=== PATIENT | male | born 1945 | race Caucasian/White ===

== ENCOUNTER 2023-07-17 00:24 | Day surgery (SDC) | payer MEDICARE, OTHER, SELFPAY ==
[2023-07-08 10:03] VITALS: BMI 35.5
--- NOTE | 2023-07-08 10:18 | PC.NURSE ---
Report to the Outpatient Waiting Room, entrance under the green pavilion located off [facility], at time ___1000____ on date __07/17/23 . Planned Procedure Time: ___1200 . Time changes happen often and if your time is changed the preop area will call you the afternoon before. - You and your visitor will be asked to self-screen and do not enter if you have any COVID symptoms. - A mask is optional within the hospital at this time. Patients may have clear liquids (water, carbonated beverages, clear teas, apple juice) until 3 hours prior to surgery (0900 AM) with a maximum of 20 ounces. - No food from midnight until time of surgery - Infants may have breast milk until 4 hours before surgery, infant formula 6 hours prior to surgery. - Children will be allowed to drink immediately following surgery. If applicable, please bring a bottle or sippy cup to assist with drinking. Juice, water, soda, and popsicles are readily available. For infants on formula, please bring formula the day of surgery. Pacifiers are allowed. Take the following medications with a SIP of water the morning of surgery: _* 1/2 DOSE OF AM INSULIN *, ISOSORBIDE, METOPROLOL_ DO NOT STOP ANY OF YOUR OTHER PRESCRIPTION MEDICATIONS PRIOR TO SURGERY ?EXCEPT THE FOLLOWING Medications to discontinue per ANESTHESIA - _VITAMINS/SUPPLEMENTS 3 DAYS PRIOR TO SURGERY, Date to take last dose 07/13/23_ Please no make-up, nail sammarinese, hairspray, perfume, deodorant, or body powder the day of surgery. No jewelry (including any body piercings) or valuables the day of surgery, leave them at home. Please take a shower or bath the night before, or the morning of, surgery with an antibacterial soap. Wear comfortable, loose fitting clothing. Children are encouraged to wear pajamas. - Jewelry must be removed prior to entering the operating room. Rings and piercings that are not removed may be cut off. - The hospital will not accept responsibility for valuables. - Please leave all valuables, including medications, at home the day of surgery. If you are going home after surgery, a licensed non cdl driver must drive you home. - NO public transportation without another adult if you receive anesthesia. - We recommend that an adult stay with you for 24 hours following discharge. - We also recommend that you do not drive, make important decision, drink alcoholic beverages, or take any drugs that were not prescribed by your health care provider for at least 24 hours after your discharge time. For Pediatric surgeries, we recommend two adults accompany the child home. Follow any additional instructions given to you from your surgeon. If you or anyone in your household have experienced Covid symptoms in the past week, please notify your surgeon or the nurse liaison at the phone number below for possible testing. Telephone instructions given to _PATIENT_and asked if any additional questions and then verbalized understanding. Patient advised to call surgeon office or pre surgery nurse liaison [phone] if any additional questions.
[2023-07-17] VITALS (9 sets, daily range): BP systolic 102–152; BP diastolic 52–80; PULSE 60–68; RESP 12–16; TEMP 36.1–36.6; O2SAT 94–100
[2023-07-17 10:27] LABS: Glucose Point of Care 114 mg/dl (65-105)
[2023-07-17] MEDS: ACETAMINOPHEN 500 MG TABLET 1000 MG PO (10:40)
[2023-07-17] MEDS: KETOROLAC 15 MG/ML VIAL (*BKC) IV PUSH (10:40)
[2023-07-17] MEDS: LACTATED RINGERS 1,000 ML 30 ML IV CONT ×2 (10:55→13:00)
--- NOTE | 2023-07-17 11:36 | WPDANESEPPF ---
Anes - Initial Pre Proc Eval Procedure: Operation Date: 07/17/23 12:00 Proposed Procedures p Rectal Exam Under Anesthesia, Transanal Hemorrhoidal Dearteriaization - Satinder Sesay DO Date/Time: 07/17/23 11:36 Surgeon: Satinder Sesay DO Pre Op Diagnosis: Grade II Internal Hemorrhoids Patient Data Age: 77 Gender: M Height: 1.75 m Weight: 109.6 kg Last Vital Signs Temp 97.8 F 07/17/23 10:47 Pulse 65 07/17/23 10:47 Resp 14 07/17/23 10:47 BP 115/68 07/17/23 10:47 Pulse Ox 96 07/17/23 10:47 O2 Del Method Room Air 07/17/23 10:47 Allergies Allergy/AdvReac Type Severity Reaction Status Date / Time shellfish derived AdvReac SOB, Verified 07/17/23 10:55 FACIAL SWELLING, WATERY/ITCHY EYES Home Medications Medication Instructions Recorded Confirmed Type atorvastatin 40 mg tablet (Lipitor) 40 mg PO DAILY 05/20/23 07/08/23 History cetirizine 10 mg capsule (Zyrtec) 10 mg PO DAILY PRN Congestion 05/20/23 07/08/23 History empagliflozin 25 mg tablet 25 mg PO DAILY 05/20/23 07/08/23 History (Jardiance) fenofibrate nanocrystallized 145 145 mg PO DAILY 05/20/23 07/08/23 History mg tablet (Tricor) glimepiride 2 mg tablet 4 mg PO QAM 05/20/23 07/08/23 History insulin lispro 100 unit/mL 1 sliding scale dose subcut 05/20/23 07/17/23 History subcutaneous cartridge (Humalog USEASDIRECTD U-100 Insulin) isosorbide mononitrate 30 mg 30 mg PO DAILY 05/20/23 07/08/23 History tablet,extended release 24 hr losartan 50 mg tablet (Cozaar) 50 mg PO DAILY 05/20/23 07/17/23 History metformin 750 mg tablet,extended 750 mg PO BID 05/20/23 07/08/23 History release 24 hr metoprolol succinate 50 mg 50 mg PO DAILY 05/20/23 07/08/23 History tablet,extended release 24 hr omega 8-fbp-wsp-fish oil 60 mg-90 1 cap PO DAILY 05/20/23 07/08/23 History mg-500 mg capsule (Fish Oil) omeprazole 40 mg capsule,delayed 40 mg PO DAILY PRN Stomach Upset 05/20/23 07/08/23 History release semaglutide 1 mg/dose (4 mg/3 mL) 1 mg subcut WEEKLY 05/20/23 07/08/23 History subcutaneous pen injector (Ozempic) vitamins A,C,R-oslp-gecsqf 4,296 1 cap PO BID 05/20/23 07/08/23 History mcg-226 mg-90 mg capsule (PreserVision AREDS) insulin glargine 100 unit/mL (3 50 unit subcut BID 07/08/23 07/17/23 History mL) subcutaneous pen (Lantus Solostar U-100 Insulin) Laboratory Tests 07/17/23 10:20 POC Capillary Glucose 114 H mg/dl (65-105) Patient hx anesthesia problems: none Family hx anesthesia problems: none Results Review: All pre-operative results and documents have been reviewed as part of the pre-operative evaluation. [facility] Past Medical History Medical History (Updated 05/25/23 @ 10:29 by Kena Kim CMA) Diabetes HTN (hypertension) Hyperlipidemia Family History Family History Other Diabetes mellitus Social History Social History Smoking status: Never smoker Tobacco type: cigarettes Second hand tobacco smoke exposure: No Alcohol intake: never Substance use: never Substance use type: does not use Living arrangements: with family Spiritual care concerns: No Anes - Eval Final PreProcedure Day of Procedure 07/17/23 11:36 Patient weight: obese Heart: regular rate and rhythm Lungs: clear to auscultation Airway: Mallampati scale class II Neurological: alert and oriented Last oral intake: >/= 8 hours ASA classification: III Emergent: no Anesthetic plan: proceed Anesthesia type and monitoring: general ETT and standard monitoring Results Review: All pre-operative results and documents have been reviewed as part of the pre-operative evaluation. Informed Consent: The patient's anesthetic plan and its attendant risks and benefits were discussed with the patient/family/POA. Questions were solicited an
--- NOTE | 2023-07-17 11:59 | WPDHPUPDATE1 ---
History and Physical Update Update Date/Time: 07/17/23 11:59 History and Physical has been reviewed, including an updated exam of the patient. There are NO changes in the patient's condition. Risks, benefits, and alternatives have been discussed and questions answered. Patient agrees to proceed with procedure.
--- NOTE | 2023-07-17 11:59 | PM.IMHP ---
H&P: HPI History of Present Illness Date/Time: 07/17/23 11:59 Chief Complaint: Bleeding internal hemorrhoids Narrative: 77 yo man presents for hemorrhoid procedure. He was experiencing frequent rectal bleeding. Bleeding has been less lately. He also has a small nodule around his anus. Review of Systems Review of Systems: All systems reviewed & are unremarkable except as noted in HPI and below Constitutional: Constitutional: Denies chills, Denies fever(s), Denies headache(s) and Denies weight loss Eyes: Eyes: Denies change in vision ENT: Denies dizziness, Denies headache(s), Denies neck mass and Denies throat swelling Cardiovascular: Cardiovascular: Denies chest pain, Denies lightheadedness and Denies dyspnea Respiratory: Respiratory: Denies cough, Denies dyspnea and Denies wheezing Gastrointestinal: Gastrointestinal: Denies abdominal pain, Denies change in bowel habits, Denies nausea and Denies vomiting Genitourinary: Genitourinary: Denies hematuria and Denies dysuria Musculoskeletal: Musculoskeletal: Reports as per HPI Integumentary/Breasts: Skin/Breast: Reports as per HPI Neurologic: Denies dizziness and Denies headache(s) Allergic/Immunologic: Allergic/Immunologic: Denies throat swelling and Denies wheezing [facility] Past Medical History Medical History (Updated 05/25/23 @ 10:29 by Kena Kim CMA) Diabetes HTN (hypertension) Hyperlipidemia Family History Family History Other Diabetes mellitus Social History Social History Smoking status: Never smoker Tobacco type: cigarettes Second hand tobacco smoke exposure: No Alcohol intake: never Substance use: never Substance use type: does not use Living arrangements: with family Spiritual care concerns: No Meds Home Medications and Allergies Home Medications Medication Instructions Recorded Confirmed Type atorvastatin 40 mg tablet (Lipitor) 40 mg PO DAILY 05/20/23 07/08/23 History cetirizine 10 mg capsule (Zyrtec) 10 mg PO DAILY PRN Congestion 05/20/23 07/08/23 History empagliflozin 25 mg tablet 25 mg PO DAILY 05/20/23 07/08/23 History (Jardiance) fenofibrate nanocrystallized 145 145 mg PO DAILY 05/20/23 07/08/23 History mg tablet (Tricor) glimepiride 2 mg tablet 4 mg PO QAM 05/20/23 07/08/23 History insulin lispro 100 unit/mL 1 sliding scale dose subcut 05/20/23 07/17/23 History subcutaneous cartridge (Humalog USEASDIRECTD U-100 Insulin) isosorbide mononitrate 30 mg 30 mg PO DAILY 05/20/23 07/08/23 History tablet,extended release 24 hr losartan 50 mg tablet (Cozaar) 50 mg PO DAILY 05/20/23 07/17/23 History metformin 750 mg tablet,extended 750 mg PO BID 05/20/23 07/08/23 History release 24 hr metoprolol succinate 50 mg 50 mg PO DAILY 05/20/23 07/08/23 History tablet,extended release 24 hr omega 7-qle-zpx-fish oil 60 mg-90 1 cap PO DAILY 05/20/23 07/08/23 History mg-500 mg capsule (Fish Oil) omeprazole 40 mg capsule,delayed 40 mg PO DAILY PRN Stomach Upset 05/20/23 07/08/23 History release semaglutide 1 mg/dose (4 mg/3 mL) 1 mg subcut WEEKLY 05/20/23 07/08/23 History subcutaneous pen injector (Ozempic) vitamins A,C,J-uqoy-nahjwf 4,296 1 cap PO BID 05/20/23 07/08/23 History mcg-226 mg-90 mg capsule (PreserVision AREDS) insulin glargine 100 unit/mL (3 50 unit subcut BID 07/08/23 07/17/23 History mL) subcutaneous pen (Lantus Solostar U-100 Insulin) Allergies Allergy/AdvReac Type Severity Reaction Status Date / Time shellfish derived AdvReac SOB, Verified 07/17/23 10:55 FACIAL SWELLING, WATERY/ITCHY EYES Vital Signs Vital Signs - 24 hr 07/17/23 10:47 Temperature 36.6 C Pulse Rate 65 Respiratory Rate 14 Blood Pressure 115/68 Pulse Oximetry 96 Oxygen Delivery Room Air Exam Const: General: no acute distress and alert
[2023-07-17] MEDS: ceFAZolin 2 GM/D5W 50 ML 2 GM/50 ML BAG IVPB (12:05)
[2023-07-17] MEDS: BUPIVACAINE/EPINEPHRINE 0.5% 50 ML VIAL 30 ML INFILTRATE (12:22)
--- NOTE | 2023-07-17 12:56 | W.PM.PROC2 ---
Procedure Note - Detailed Date of Procedure 07/17/23 Pre-op Diagnosis Grade II Internal Hemorrhoids Post-op Diagnosis Other (Grade 2 internal hemorrhoids, right anterior intersphincteric anal fistula) Procedure Performed 1. Multiple hemorrhoid ligation (Transanal hemorrhoid dearterialization procedure) 2. Right anterior intersphincteric anal fistulotomy Surgeon Satinder Sesay, DO Anesthesia General and Local ( 0.5% bupivacaine with epinephrine) Indications This is a 77-year-old man who complained of intermittent rectal bleeding. He had previously had colonoscopies which were normal other than internal hemorrhoids. He would have intermittent bright red blood after bowel movements. He was found to have grade 2 internal hemorrhoids on exam. Discussions were made with the patient about treatment options and decision was made to proceed with rectal exam under anesthesia with transanal hemorrhoid dearterialization procedure. In preop the patient was also complaining of a small nodule in the anal skin. He was wishing to proceed with excision of this. I discussed with him that I would take a look at the area and determine best treatment for this at the time of surgery. Findings Rectal exam under anesthesia was performed. The patient was found to have mild prolapsing internal hemorrhoid tissue circumferentially. This was slightly worse in the right posterior and left lateral regions. No deeper rectal abnormalities were noted with the anoscope. THD procedure was performed in the typical locations at the 1, 3, 5, 7, 9, and 11 o'clock positions. No significant prolapsing tissue was identified after completing this. Patient did have a small perianal nodule about 1 cm from the anal verge. This was located in the right anterior location. There did appear to be a small punctate opening at the central portion of this lesion. I used a lacrimal probe to carefully probe this area and it did appear to be the external opening of a fistula tract and this was traced internally to the right anterior midline anal canal. 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 A fistulotomy was performed in this location. No other abnormalities were noted. No specimens were obtained for pathology. Description of Procedure Procedure as well as risks, benefits, and alternatives were discussed with the patient. Written consent was obtained and placed in chart prior to procedure. Patient was brought back to surgical suite. He was placed supine hospital stretcher. He was then intubated by the Anesthesia Department. He was then repositioned into prone juli-knife position and his buttocks were taped apart on each side. His perirectal area was prepped and draped in sterile fashion using Betadine prep. Time-out was done to confirm patient and procedure. Digital rectal exam was initially performed. A Hill-Hanna anoscope was then inserted in the anorectal canal was carefully inspected. Prolapsing internal hemorrhoids were identified, but no other significant abnormalities were noted. The [facility] Doppler anoscope was then inserted. The pulsatile hemorrhoidal vessel was initially identified in the 1 o'clock location. A 2 0 Vicryl [id number] suture was placed at this location and the suture was tied down to ligate the vessel. This was then repeated in the 3, 5, 7, 9, and 11 o'clock positions. All Doppler signals were easily identified in each location. I then inspected the perianal skin in the location where patient was complaining of a nodule. There appeared to be a raised nodule with a small punctate opening in the center in the right anterior location. I probed this area with a small lacrimal probe and there did appear to be a fistula tract advancing from the right anterior region towards the anterior midline. The fistula tract was identified within the anal canal. This appeared to be a shallow fistula tract only involving a few sphincter muscle fibers. I anesthetized th
[2023-07-17 13:21] LABS: Glucose Point of Care 131 mg/dl (65-105)
== END 2023-07-17 14:45 | disposition home or self-care (01) ==
PROVIDERS: PCP Physician Assistant; Visit Provider Surgery
PROC: (CPT 46275; principal; 2023-07-17 12:00)
DX: K64.1 Second degree hemorrhoids (principal); K60.3 Anal fistula; E11.9 Type 2 diabetes mellitus without complications; I10 Essential (primary) hypertension; E78.5 Hyperlipidemia, unspecified; Z79.4 Long term (current) use of insulin; Z79.84 Long term (current) use of oral hypoglycemic drugs; Z79.85 Long-term (current) use of injectable non-insulin antidiabetic drugs; E66.9 Obesity, unspecified; Z68.35 Body mass index [BMI] 35.0-35.9, adult
CPT/HCPCS: 46275; 46948; 82948; A9270; J0330; J0690; J1100; J1885; J2405; J2704; J3010; J7120